=== PATIENT | male | born 1960 | race Caucasian/White ===

== ENCOUNTER → 2018-10-28 09:30 | Outpatient (CLI) | payer OTHER | END | disposition home or self-care (01) | LOC: D.US 09:00 | DX: N45.1 Epididymitis (principal) ==

== ENCOUNTER → 2021-02-21 07:59 | Outpatient (CLI) | payer MEDICARE, MEDICAID ==
[2021-02-21 08:41] LABS: ALBUMIN 3.5 g/dL (3.4-5.0); BILIRUBIN - DIRECT 0.25 mg/dL (0.00-0.30); BILIRUBIN - INDIRECT 0.45 mg/dL (0.00-1.00); BILIRUBIN - TOTAL 0.7 mg/dL (0.2-1.3); PROTEIN - SERUM 8.3 g/dL (6.4-8.2)
== END | disposition home or self-care (01) ==
LOC: D.US 07:59
PROVIDERS: ATTEND Internal Medicine Gastroenterology
DX: K76.0 Fatty (change of) liver, not elsewhere classified (principal)

== ENCOUNTER → 2021-04-06 09:08 | Outpatient (CLI) | payer MEDICARE, MEDICAID | END | disposition home or self-care (01) | LOC: D.NM 09:08 | PROVIDERS: ATTEND Internal Medicine Gastroenterology | DX: K80.20 Calculus of gallbladder without cholecystitis without obstruction (principal); R93.89 Abnormal findings on diagnostic imaging of other specified body structures ==